=== PATIENT | female | born 1990 | race Caucasian/White ===

== ENCOUNTER 2023-11-06 15:31 | Emergency (ER) | payer OTHER ==
[2023-11-06] MEDS: diphenhydrAMINE 50 MG/ML SDV IM ONE (16:07)
== END 2023-11-06 17:27 | disposition home or self-care (01) ==
LOC: JP.ED 15:31
DX: T63.441A Toxic effect of venom of bees, accidental (unintentional), initial encounter (principal); Z91.030 Bee allergy status
CPT/HCPCS: 96372; 99282; J1200